=== PATIENT | male | born 1985 | race Caucasian/White ===

== ENCOUNTER 2019-01-25 15:15 | Emergency (ER) | payer SELFPAY ==
[~2019-01-25] VITALS: Ht 172.7 cm; Wt 84.5 kg
[2019-01-25 15:24] VITALS: BP 117/61; TEMP 99.9
[2019-01-25 19:45] VITALS: PULSE 60
== END 2019-01-25 19:45 | disposition home or self-care (01) ==
LOC: COL.ER 15:15
DX: S60.011A Contusion of right thumb without damage to nail, initial encounter (principal); W19.XXXA Unspecified fall, initial encounter; Y92.009 Unspecified place in unspecified non-institutional (private) residence as the place of occurrence of the external cause
CPT/HCPCS: Q4021